=== PATIENT | female | born 1995 | race Caucasian/White ===

== ENCOUNTER → 2017-06-06 | Outpatient (CLI) | payer OTHER ==
--- NOTE | 2017-06-06 17:42 | REP ---
Sacrum and coccyx series: Three views. History: Bilateral low back pain, acute. Findings: Sacral and coccygeal radiographs show no evidence of sacral or coccygeal fracture or displacement. No bony destructive lesion is seen. SI joints are unremarkable. Impression: Negative sacral and coccygeal views. Signed by All Espino MD 06/07/2017 09:11 A
--- NOTE | 2017-06-06 17:43 | REP ---
Lumbar spine series: Five views. History: Acute bilateral low back pain without sciatica. Findings: There is straightening of the normal lumbar lordosis. Lumbar vertebral body heights are preserved. There is mild disc space narrowing at L4-5 and to a lesser extent at L3-4. Pedicles and posterior elements are intact. There is no evidence of spondylolysis or spondylolisthesis. Impression: Straightening. Mild disc narrowing L3-4 and L4-5. Otherwise negative. Signed by All Espino MD 06/07/2017 09:11 A
== END ==
LOC: M LRY 16:36
PROVIDERS: ATTEND Nurse Practitioner Family
DX: M54.5 Low back pain (principal)

== ENCOUNTER → 2020-01-28 | Outpatient (REF) | payer OTHER | LOC: M SFHCLERA 13:36 | PROVIDERS: ATTEND Nurse Practitioner Family | DX: R31.9 Hematuria, unspecified (principal) ==